=== PATIENT | male | born 1975 | race Hispanic/Latino ===

== ENCOUNTER 2021-09-30 15:54 | Emergency (ER) | payer SELFPAY ==
[~2021-09-30] VITALS: Ht 172.7 cm; Wt 79.4 kg
[2021-09-30] MEDS ORDERED: KETOROLAC TROMETHAMINE 60 MG/2 ML VIAL IM ONE (20:00)
[2021-09-30] MEDS ORDERED: KETOROLAC TROMETHAMINE 60 MG/2 ML VIAL ONE (20:01)
[2021-09-30] MEDS ORDERED: CIPRO500 MG PO (20:04)
[2021-09-30] MEDS ORDERED: FLOMAX0.4 MG PO (20:05)
[2021-09-30] MEDS ORDERED: ULTRAM 50MG50 MG PO (20:06)
[2021-09-30 20:26] VITALS: BP 135/82
== END 2021-09-30 20:26 | disposition home or self-care (01) ==
LOC: FSED 16:22
DX: R10.32 Left lower quadrant pain (principal); N13.2 Hydronephrosis with renal and ureteral calculous obstruction; R94.4 Abnormal results of kidney function studies; R91.8 Other nonspecific abnormal finding of lung field
CPT/HCPCS: 51700; 74176; 80053; 81003; 85025; 96372; 99283; J1885